=== PATIENT | female | born 1970 | race Caucasian/White ===

== ENCOUNTER 2020-04-29 12:42 | Emergency (ER) | payer OTHER ==
[~2020-04-29] VITALS: Ht 167.6 cm; Wt 91.2 kg
[~2020-04-29 12:42] MED LIST: ASPI-496 PO; DIPH1TAB PO; HYDROCHLOROTH12.5 MG PO; HYOS0.1260 PO; PARO20TA98 PO; VALS160T3 PO; VITA1TAB3 PO
--- NOTE | 2020-04-29 12:58 | NUR ---
PT BIB EMS FOR CHEST PAIN. STATES SHE WAS WATCHING TV WHEN SHE FELT SEVER 9/10 CRUSHING CHEST PAIN ACROSS HER CHEST THAT RADIATES TO BACK. PT TOOK 324 ASPRIN, 1 MG XANAX WITH SOME RELIEF. PT WAS ALSO NAUSEOUS AND SOB. PT RECENTLY OF [place] 7 MONTHS AGO. PT UNDER A LOT A STRESS. PT IS RESTING IN [facility]. CONNECTED TO ALL MONITORING EQUIPMENT. EKG COMPLETE
[2020-04-29] MEDS ORDERED: SODIUM CHLORIDE FLUSH 10ML SYR IVF ONE (13:00)
[2020-04-29] MEDS ORDERED: ASPIRIN 81 MG TABLET CHEW PO ONE (13:00)
[2020-04-29] MEDS ORDERED: LORazepam 2 MG/ML, 1ML IVPush ONE (13:00)
[2020-04-29] MEDS ORDERED: LORazepam 2 MG/ML, 1ML ONE (13:02)
[2020-04-29 13:08] LABS: BASOPHILS % (AUTO) 1 % (0-1); EOSINOPHILS % (AUTO) 1 % (1-7); LYMPHOCYTES % (AUTO) 22 % (22-44); MEAN CORPUSCULAR HEMOGLOBIN 33.5 pg (27.0-34.8); MEAN CORPUSCULAR HGB CONC 33.8 g/dL (32.4-35.8); MEAN PLATELET VOLUME 9.2 fL (7.4-10.4); MONOCYTES % (AUTO) 6 % (2-9); NEUTROPHILS % (AUTO) 71 % (42-75); PLATELET COUNT 134 x10^3/uL (130-400); RED CELL DISTRIBUTION WIDTH 13.1 % (9.6-15.2)
[2020-04-29 13:13] LABS: MD NO
[2020-04-29 13:20] LABS: ALBUMIN 3.9 g/dL (3.4-5.0); ANION GAP 8 mmol/L (5-15); CALCIUM 9.2 mg/dL (8.5-10.1); CHLORIDE 103 mmol/L (98-107)
[2020-04-29 13:24] LABS: TROPONIN I < 0.015 ng/mL (0.000-0.045)
--- NOTE | 2020-04-29 13:39 | NUR ---
PT REPORTS SHE IS FEELING BETTER. IS RESTING IN GURNEY. NAD. VSS
[2020-04-29] MEDS ORDERED: OMNIPAQUE 350 MG/ML, 75ML BOTTLE ONE (14:24)
--- NOTE | 2020-04-29 15:03 | NUR ---
REPORT RECEIVED FROM DARÍO DANIEL. PLAN OF CARE DISCUSSED
[2020-04-29 16:17] VITALS: BP 160/87
--- NOTE | 2020-04-29 16:40 | NUR ---
Patient given discharge instructions and they have confirmed that they understand the instructions. Patient ambulatory with steady gait.
== END 2020-04-29 16:42 | disposition home or self-care (01) ==
LOC: ED 13:41
DX: M94.0 Chondrocostal junction syndrome [Tietze] (principal); R07.89 Other chest pain; F41.1 Generalized anxiety disorder; R06.00 Dyspnea, unspecified; R06.4 Hyperventilation; I10 Essential (primary) hypertension
CPT/HCPCS: 36415; 71045; 71275; 80048; 82040; 84484; 85025; 85379; 93005; 96374; 99285; J2060; Q9967